=== PATIENT | female | born 1950 | race African-American/Black ===

== ENCOUNTER → 2022-07-21 | Day surgery (SDC) | payer OTHER, MEDICARE ==
[2022-07-13 12:20] LABS: BASOPHILS # (AUTO) 0.1 (0.0-0.1); BASOPHILS % 0.8 % (0.0-1.0); EOSINOPHILS # (AUTO) 0.3 (0.0-0.4); EOSINOPHILS % 2.8 % (0.0-6.0); HEMATOCRIT 45.3 % (34.2-44.1); HEMOGLOBIN 13.4 g/dL (12.0-16.0); LYMPHOCYTES # (AUTO) 1.8 (1.0-3.2); MEAN CORPUSCULAR HEMOGLOBIN 26.5 pg (28-32); MEAN CORPUSCULAR HGB CONC 29.6 g/dL (31-35); MEAN CORPUSCULAR VOLUME 89.7 fL (81-99); MONOCYTES % 10.7 % (4.4-11.3); NEUTROPHILS # (AUTO) 5.8 (2.1-6.9); NEUTROPHILS % 65.5 % (38.7-80.0); PLATELET COUNT 322 x10e3/uL (140-360); RED BLOOD COUNT 5.05 x10e6/uL (3.6-5.1); RED CELL DISTRIBUTION WIDTH 14.4 % (11.7-14.4)
[~2022-07-21] MED LIST: ADVAIR 500/501 EA INH; AMLODIPINE BESY10 MG PO; FENTANYL CITRATE/PF 100MCG/2 ML INJ ONE; FLUOXETINE HCL20 M1 PO; GABAPENTIN300 MG PO; HYDROCHLOROTHIA25 MG PO; MELOXICAM7.5 MG PO; MIDAZOLAM HCL 2 MG/2 ML VIAL ONE; PROPOFOL IV EMULSION 10 MG/ML 50 ML VIAL IV ONE; PROVENTIL HFA6.7 GM INH; SELENIUM200 MC2 PO; WELLBUTRIN SR150 MG PO
[2022-07-21 13:19] VITALS: BP 134/76
== END | disposition home or self-care (01) ==
LOC: OR 10:48
PROVIDERS: ATTEND Internal Medicine Gastroenterology
DX: Z12.11 Encounter for screening for malignant neoplasm of colon (principal); D12.4 Benign neoplasm of descending colon; K29.50 Unspecified chronic gastritis without bleeding; K29.80 Duodenitis without bleeding; K21.00 Gastro-esophageal reflux disease with esophagitis, without bleeding; I85.00 Esophageal varices without bleeding; K44.9 Diaphragmatic hernia without obstruction or gangrene; K57.30 Diverticulosis of large intestine without perforation or abscess without bleeding; K64.8 Other hemorrhoids; D64.9 Anemia, unspecified; G47.33 Obstructive sleep apnea (adult) (pediatric); J45.909 Unspecified asthma, uncomplicated; I10 Essential (primary) hypertension; F32.A Depression, unspecified; Z88.1 Allergy status to other antibiotic agents; Z88.0 Allergy status to penicillin; Z01.810 Encounter for preprocedural cardiovascular examination; Z01.812 Encounter for preprocedural laboratory examination; Z79.1 Long term (current) use of non-steroidal anti-inflammatories (NSAID); Z79.899 Other long term (current) drug therapy; Z68.32 Body mass index [BMI] 32.0-32.9, adult
CPT/HCPCS: 36415; 43239; 45384; 85025; 93005; J2250; J2704; J3010; 45378